=== PATIENT | female | born 1965 | race Caucasian/White ===

== ENCOUNTER 2021-08-15 07:39 | Day surgery (SDC) | payer OTHER ==
[~2021-08-15] VITALS: Ht 152.4 cm; Wt 159.8 kg
[~2021-08-15 07:39] MED LIST: Naprosyn500 MG PO
[2021-08-15] MEDS ORDERED: DHEA (07:56)
[2021-08-15] MEDS ORDERED: VITAMIN D5000 UNIT (07:57)
[2021-08-15] MEDS ORDERED: QUERCETIN DIHYDR1 GM (07:57)
[2021-08-15] MEDS ORDERED: VITAMIN B122500 MC1 (07:59)
[2021-08-15] MEDS ORDERED: Acerola C500 MG (08:00)
[2021-08-15] MEDS ORDERED: 1/2 NS 250ml250 ML (08:00)
[2021-08-15] MEDS ORDERED: ZINC15 (08:00)
--- NOTE | 2021-08-15 08:27 | NUR ---
08/15/21 0827 Nadira Chandler FIRST ATTEMPT INFILTRATED. SECOND ATTEMPT SUCCESS.
== END 2021-08-15 10:02 | disposition home or self-care (01) ==
LOC: ORSCSDS 07:39
PROVIDERS: Student in an Organized Health Care Education/Training Program
PROC: 0DBN8ZX Excision of Sigmoid Colon, Via Natural or Artificial Opening Endoscopic, Diagnostic (ICD-10-PCS; principal; 2021-08-15 09:00)
DX: Z12.11 Encounter for screening for malignant neoplasm of colon (principal); K63.5 Polyp of colon; K64.4 Residual hemorrhoidal skin tags; K64.8 Other hemorrhoids; E66.9 Obesity, unspecified; Z68.32 Body mass index [BMI] 32.0-32.9, adult; Z79.899 Other long term (current) drug therapy
CPT/HCPCS: 88305; J2704; J7120

== ENCOUNTER → 2023-02-12 | Outpatient (CLI) | payer OTHER ==
[~2023-02-12] MED LIST changes: +1/2 NS 250ml250 ML; +Acerola C500 MG; +DHEA; +QUERCETIN DIHYDR1 GM; +VITAMIN B122500 MC1; +VITAMIN D5000 UNIT; +ZINC15
[2023-02-14 11:10] LABS: HPV 16 Negative (Negative); HPV 18 Negative (Negative); HPV OTHER HR TYPES Negative (Negative)
== END ==
LOC: LAB 16:58 → LAB SHORT 16:58
PROVIDERS: Nurse Practitioner Family
DX: Z12.4 Encounter for screening for malignant neoplasm of cervix (principal)
CPT/HCPCS: 87624; G0145